=== PATIENT | female | born 2000 | race Caucasian/White ===

== ENCOUNTER → 2021-01-12 | Outpatient (CLI) | payer BC ==
--- NOTE | 2021-01-12 13:14 | EEG ---
DATE OF SERVICE: 01/12/2021 ELECTROENCEPHALOGRAM REPORT EEG NUMBER: [id number]. OBJECTIVE: The patient is a 20-year-old female with history of 2 seizures in her life. DESCRIPTION: This is a digital study. Electrodes were placed according to the international 10-20 system. Bipolar and referential montages are available. Activation procedures typically include hyperventilation and intermittent photic stimulation. INTERPRETATION: The waking background consists of 9-10 Hz, 50-100 microvolt activity, symmetrically distributed over the parietal occipital regions and reactive to eye opening. Hyperventilation and intermittent photic stimulation are noncontributory. Stage I sleep was achieved with normal electroencephalogram patterns. IMPRESSION: This electroencephalogram with the patient awake and asleep is within normal limits. There was no focal, paroxysmal, or epileptiform activity. Thank you for letting us help with the patient's care. SHARON DR: [place] TID: [id number]
== END ==
LOC: EEG 08:07
PROVIDERS: ATTEND Psychiatry & Neurology Neurology with Special Qualifications in Child Neurology
DX: R56.9 Unspecified convulsions (principal)
CPT/HCPCS: 95816